=== PATIENT | female | born 1955 | race Asian ===

== ENCOUNTER 2016-10-08 11:50 | Emergency (ER) | payer OTHER ==
[2016-10-08 12:04] VITALS: BP 149/74; PULSE 76; TEMP 98; BMI 24.5
[2016-10-08] MEDS ORDERED: CLINDAMYCIN 900 MG PREMIX IVPB 50 ML IVPB ONE (12:13)
[2016-10-08] MEDS ORDERED: CLINDAMYCIN PHOSPHATE 300 MG/2 ML VIAL ONE (12:15)
[2016-10-08] MEDS ORDERED: CLINDAMYCIN PHOSPHATE 600 MG/4 ML VIAL ONE (12:15)
--- NOTE | 2016-10-08 12:19 | PDOC ---
History of Present Illness - General Chief Complaint: Injury Stated Complaint: FELL ON HER FACE Time Seen by Provider: 10/08/16 11:59 History Source: Patient - History of Present Illness Initial Comments: 10/08/16 12:14 60 yo F with no pmhx here wtih c/o abrasion to nasal bridge after fall one week ago, and now with worsenign redness swelling to left face. no n/v no fever or chills. no loc at time of fall. no change to vision. no pain with eye movement. was putting aloe plant on face, and took zyrtec. also took benadryl thought maybe it was allergic no relief. no prior medication allergies. no epistaxis or eccymosis at time of fall. Past History - Past Medical History Allergies/Adverse Reactions: Allergies Allergy/AdvReac Type Severity Reaction Status Date / Time No Known Allergies Allergy Verified 03/01/15 20:47 Home Medications: Ambulatory Orders Cetirizine HCl [Zyrtec -] 10 mg PO DAILY PRN 10/08/16 Clindamycin [Cleocin -] 300 mg PO Q6HPO #28 capsule 10/08/16 Diphenhydramine HCl [Benadryl -] 25 mg PO ONCE 10/08/16 Asthma: Yes Psychiatric Problems: Yes - Psycho/Social/Smoking Cessation Hx Anxiety: Yes Suicidal Ideation: No Smoking History: Never smoked Hx Alcohol Use: No Drug/Substance Use Hx: No Substance Use Type: None Review of Systems - Review of Systems Constitutional: No: Chills, Diaphoresis HEENTM: No: Eye Pain, Blurred Vision Respiratory: No: Cough, Orthopnea Cardiac (ROS): No: Chest Pain, Edema ABD/GI: No: Abdominal Distended : No: Burning, Dysuria Musculoskeletal: No: Back Pain, Gout Integumentary: Yes: Dryness, Erythema, Pruritus, Other (dermatitis type rash left lower chin, left face swelling. ) Neurological: No: Headache, Numbness All Other Systems: Reviewed and Negative *Physical Exam - Vital Signs Last Vital Signs Temp Pulse Resp BP Pulse Ox 98.0 F 76 15 149/74 98 10/08/16 11:56 10/08/16 11:56 10/08/16 11:56 10/08/16 11:56 10/08/16 11:56 - Physical Exam General Appearance: Yes: Appropriately Dressed, Apparent Distress HEENT: positive: DAWN, Pharynx Normal, Other (nasal bridge swelling, erythema. turbinate intact, no septal hematoma. EOMI. ). negative: Muffled/Hoarse voice, Pharyngeal Erythema, Tonsillar Exudate, Tonsillar Erythema, Nasal Congestion, Sinus Tenderness Neck: positive: Trachea midline. negative: Tender Respiratory/Chest: positive: Lungs Clear, Normal Breath Sounds. negative: Chest Tender, Respiratory Distress Cardiovascular: positive: Regular Rhythm, Regular Rate, S1, S2. negative: Edema , JVD, Murmur Musculoskeletal: positive: Normal Inspection. negative: CVA Tenderness, CVA Tenderness (R) Extremity: positive: Normal Capillary Refill, Normal Inspection, Normal Range of Motion Integumentary: positive: Dry, Warm, Erythema, Other (erythema to nasal bridge with abrasion, left lat facial min swelling. no pain wtih EOM, no crepitus. no fluctuance) Neurologic: positive: coffin maker II-XII NML intact, Fully Oriented, Alert, Normal Mood/ Affect ED Treatment Course - LABORATORY CBC & Chemistry Diagram: 10/08/16 12:15 10/08/16 12:15 Medical Decision Making - Medical Decision Making 10/08/16 12:18 60 yo F s/p abrasion to nasal bridge, now with early cellulitis, sx of infection. differential includes allergy to aloe cream. plan labs iv antiobtiocs. will d/w dr. Oliva [phone]. possible dc on abx with close followup. no sx of orbital cellulitis on exam or history. pt not diabetic. also local antiobiotc cream with bacitracin. 10/08/16 13:42 pt physician no call back . dc on clindamycin, told to return to ED in 48 hours for repeat evaluation if unable to get a hold of pcp. *DC/Admit/Observation/Transfer Diagnosis at time of Disposition: Abrasion of nose with infection - Discharge Dispostion Disposition: HOME Condition at time of disposition: Good Admit: No - Prescriptions Prescriptions: Clindamycin [Cleocin -] 300 mg PO Q6HPO #28 capsule - Referrals Referrals: Qasim Moreland MD [Primary Care Provider] - - Patient Instructions Printed Discharge Instructions: Cellulitis Additional Instructions: take clindamycin 300 mg four times daily x 7 days. return for worsening swelling , fever ,pain in eye or any concern. you need to be seen by your doctor within 2 - 3 days. return for any problems or concerns. if you are unable to follow up with your doctor. you should return to ED to have a repeat evaluation. do not put aloe on face. apply bacitracin ointment twice daily
[2016-10-08 12:45] LABS: BASOPHIL 2.7 % (0-2.0); EOSINOPHIL 12.4 % (0-4.5); MCH 29.1 pg (25.7-33.7); MCHC 32.9 g/dl (32.0-36.0); MEAN CELL VOLUME 88.6 fl (80-96); MEAN PLT VOLUME 7.9 fl (7.5-11.1); NEUTROPHILS 47.2 % (42.8-82.8); PLATELET COUNT 370 K/MM3 (134-434); WHITE BLOOD COUNT 6.4 K/mm3 (4.0-10.8)
[2016-10-08 12:49] LABS: ANION GAP 8 (8-16); CALCIUM 8.9 mg/dl (8.4-10.2); CO2 26 mmol/L (22-28); CREATININE 0.7 mg/dl (0.6-1.3); GLUCOSE,RANDOM 127 mg/dl (74-106)
== END 2016-10-08 13:55 | disposition home or self-care (01) ==
LOC: FER 11:50
DX: S00.31XD Abrasion of nose, subsequent encounter (principal); L08.9 Local infection of the skin and subcutaneous tissue, unspecified; W18.30XD Fall on same level, unspecified, subsequent encounter
CPT/HCPCS: 36415; 80048; 85025; 87040; 99283-25

== ENCOUNTER 2016-11-02 08:46 | Emergency (ER) | payer OTHER ==
[2016-11-02 09:01] VITALS: BP 131/64; PULSE 74; TEMP 98.6; BMI 24.5
--- NOTE | 2016-11-02 09:25 | PDOC ---
History of Present Illness - General Chief Complaint: Allergic Reaction Stated Complaint: FACIAL SWELLING Time Seen by Provider: 11/02/16 09:00 - History of Present Illness Initial Comments: 11/02/16 09:29 Chief complaint: Swelling and irritation around the eyes History of present illness: Patient applied some vitamin E oil to her face yesterday, subsequently developed puffiness of the lower eyelids with mild erythema. No pain in the eyes, no irritation or swelling of the throat lower face or lips, and no chest tightness or wheezing Past medical, social, family history reviewed and noncontributory except for moderate seasonal ALLERGIES Physical exam: Alert oriented well-developed well-nourished no acute distress cheerful and cooperative Afebrile, vital signs normal PERRLA, fundi benign, conjunctivae clear. ENT clear. Specifically, there is no sign of angioedema of the oropharynx, lips, or lower face There is mild periorbital edema and mild erythema bilaterally. There is no induration or point tenderness of the orbits are cheeks Neck supple without bruit mass or nodes Lungs clear with full breath sounds throughout bilaterally. No wheezes rales or rhonchi CV S1 and S2 normal without murmur rub or gallop pulses full and symmetric no JVD or edema Abdomen soft nontender without mass or organomegaly Remainder of the skin is clear. There is no other rash or urticaria present Impression: Localized contact dermatitis Plan: Symptomatic treatment with cool compresses, avoid further irritants, continue Benadryl or Vistaril. Return if there are further symptoms otherwise follow up with primary physician or software engineering manager. Patient fully ambulatory and in no pain or other discomfort upon discharge to follow-up as directed Past History - Past Medical History Allergies/Adverse Reactions: Allergies Allergy/AdvReac Type Severity Reaction Status Date / Time No Known Allergies Allergy Verified 11/02/16 09:01 Home Medications: Ambulatory Orders Hydroxyzine Pamoate [Vistaril -] 25 mg PO TID #20 capsule 11/02/16 Asthma: Yes Psychiatric Problems: Yes - Psycho/Social/Smoking Cessation Hx Anxiety: Yes Suicidal Ideation: No Smoking History: Never smoked Information on smoking cessation initiated: No Hx Alcohol Use: Yes (SOCIAL) Drug/Substance Use Hx: No Substance Use Type: Alcohol *Physical Exam - Vital Signs Last Vital Signs Temp Pulse Resp BP Pulse Ox 98.6 F 74 18 131/64 97 11/02/16 08:47 11/02/16 08:47 11/02/16 08:47 11/02/16 08:47 11/02/16 08:47 *DC/Admit/Observation/Transfer Diagnosis at time of Disposition: Contact dermatitis Qualifiers: Contact dermatitis type: allergic Contact dermatitis trigger: cosmetics Qualified Code(s): L23.2 - Allergic contact dermatitis due to cosmetics - Discharge Dispostion Disposition: HOME Condition at time of disposition: Stable Admit: No - Prescriptions Prescriptions: Hydroxyzine Pamoate [Vistaril -] 25 mg PO TID #20 capsule - Referrals Referrals: Linda Angel [Staff Physician] - - Patient Instructions Printed Discharge Instructions: DI for Contact Dermatitis Additional Instructions: Use cool compresses or cool soaks. Avoid hot showers or heat in general. Medication as prescribed. You may alternatively use [id number] Benadryl- generic name diphenhydramine- 25 mg capsules one 3 times daily Avoid applying anything to the skin of the face, including cosmetics, creams, or oils Return to ER if there is any irritation or swelling of the throat, tongue, or lips, or there is any chest tightness wheezing or respiratory symptoms. Otherwise follow-up with your doctor or with software engineering manager if no improvement
== END 2016-11-02 09:29 | disposition home or self-care (01) ==
LOC: FER 08:46
DX: L23.2 Allergic contact dermatitis due to cosmetics (principal); F41.9 Anxiety disorder, unspecified; F99 Mental disorder, not otherwise specified
CPT/HCPCS: 99281-25

== ENCOUNTER 2016-11-04 10:41 | Emergency (ER) | payer OTHER ==
--- NOTE | 2016-11-04 10:44 | PDOC ---
History of Present Illness - General Chief Complaint: Allergic Reaction Stated Complaint: FACE SWELLING Time Seen by Provider: 11/04/16 10:44 History Source: Patient Exam Limitations: No Limitations - History of Present Illness Initial Comments: 11/04/16 10:46 The patient is a 61-year-old female, who presents to the emergency department with persistent facial swelling. She was initially seen in the emergency department on October 08, when she presented with facial swelling that developed following a fall 1 week prior, during which she sustained a laceration to her nasal bridge. At that time, she was prescribed clindamycin. She took the antibiotic as prescribed, yet the facial swelling persisted, and she presented to the emergency department for another evaluation on November 02. At that time, she reported that her symptoms had been steadily improving, but she put a lotion on her face, and afterward developed facial swelling again. She is now presenting complaining of continued facial swelling. She denies pain. She denies changes in her vision. She denies diplopia. She denies fever, chills, sweats. Past History - Past Medical History Allergies/Adverse Reactions: Allergies Allergy/AdvReac Type Severity Reaction Status Date / Time No Known Allergies Allergy Verified 11/02/16 09:01 Home Medications: Ambulatory Orders Hydroxyzine Pamoate [Vistaril -] 25 mg PO TID #20 capsule 11/02/16 Amox-Tr/K Cl [Augmentin 875Mg Tablet] 1 tab PO BID #28 tablet 11/04/16 Fluticasone Prop 0.05% Nasal [Flonase] 1 - 2 spray NS DAILY #1 spray.pump Loratadine [Claritin -] 10 mg PO DAILY #7 tablet 11/04/16 Asthma: Yes Psychiatric Problems: Yes - Psycho/Social/Smoking Cessation Hx Anxiety: Yes Suicidal Ideation: No Smoking History: Never smoked Hx Alcohol Use: Yes (SOCIAL) Drug/Substance Use Hx: No Substance Use Type: Alcohol Review of Systems - Review of Systems Comments:: 11/04/16 10:48 CONSTITUTIONAL: Absent: fever, chills, diaphoresis, generalized weakness, malaise, loss of appetite HEENT: Present: See history of present illness Absent: rhinorrhea, nasal congestion, throat pain, throat swelling, difficulty swallowing, mouth swelling, ear pain, eye pain, visual changes CARDIOVASCULAR: Absent: chest pain, loss of consciousness, palpitations, irregular heart rate, peripheral edema RESPIRATORY: Absent: cough, shortness of breath, dyspnea with exertion, orthopnea, wheezing, stridor, hemoptysis GASTROINTESTINAL: Absent: abdominal pain, abdominal distension, nausea, vomiting, diarrhea, constipation, melena, hematochezia GENITOURINARY: Absent: dysuria, frequency, urgency, hesitancy, hematuria, flank pain, genital pain MUSCULOSKELETAL: Absent: myalgia, arthralgia, joint swelling SKIN: Absent: rash, itching, pallor HEMATOLOGIC/IMMUNOLOGIC: Absent: easy bleeding, easy bruising, lymphadenopathy, frequent infections ENDOCRINE: Absent: unexplained weight gain, unexplained weight loss, heat intolerance, cold intolerance NEUROLOGIC: Absent: headache, focal weakness or paresthesias, dizziness, unsteady gait, seizure, mental status changes, bladder or bowel incontinence PSYCHIATRIC: Absent: anxiety, depression, suicidal or homicidal ideation, hallucinations. *Physical Exam - Physical Exam Comments: 11/04/16 10:48 GENERAL: Well developed, well nourished. Awake and alert. No acute distress. HEENT: Normocephalic, atraumatic. PERRLA, EOMI. No conjunctival pallor. Sclera are non- icteric. Moist mucous membranes. Oropharynx is clear. NECK: Supple. Full ROM. No JVD. Carotid pulses 2+ and symmetric, without bruits. No thyromegaly. No lymphadenopathy. CARDIOVASCULAR: Regular rate and rhythm. No murmurs, rubs, or gallops. Distal pulses are 2+ and symmetric. PULMONARY: No evidence of respiratory distress. Lungs clear to auscultation bilaterally. No wheezing, rales or rhonchi. ABDOMINAL: Soft. Non-tender. Non-distended. No rebound or guarding. No organomegaly. Normoactive bowel sounds. MUSCULOSKELETAL Normal range of motion at all joints. No bony deformities or tenderness. No CVA tenderness. EXTREMITIES: No cyanosis. No clubbing. No edema. No calf tenderness. SKIN: There is very minimal bilateral periorbital edema, with very minimal erythema and hyperkeratosis of the skin. The area is not warm. The area is not tender. There is no crepitance. There is no obvious underlying facial bone tenderness. Warm and dry. Normal capillary refill. No rashes. No jaundice. NEUROLOGICAL: Alert, awake, appropriate. Cranial nerves 2-12 intact. No deficits to light touch and temperature in face, upper extremities and lower extremities. No motor deficits in the in face, upper extremities and lower extremities. Normoreflexic in the upper and lower extremities. Normal speech. Toes are down- going bilaterally. Gait is normal without ataxia. PSYCHIATRIC: Cooperative. Good eye contact. Appropriate mood and affect. 11/04/16 11:35 ED Treatment Course - LABORATORY CBC & Chemistry Diagram: 11/04/16 10:55 11/04/16 10:55 Medical Decision Making - Medical Decision Making 11/04/16 10:48 The patient is well-appearing and in no acute distress Vitals noted Will obtain CT of the facial bones with IV contrast to rule out possible fracture and possible developing abscess 11/04/16 11:36 CBC and chemistries noted CT pending 11/04/16 12:30 CT noted, with evidence of chronic sinusitis, and multiple sinus cavities It is possible that the facial swelling is due to the chronic sinusitis It is not consistent with the appearance of cellulitis, nor with the appearance of a contact dermatitis At this point, I feel that she would benefit from antibiotics, oral antihistamines, intranasal corticosteroids and ENT referral She may require oral steroids as well, but I will defer this to ENT Clinical impression: Sinusitis Facial swelling I discussed the physical exam findings, ancillary test results and final diagnoses with the patient. I answered all of the patient's questions. The patient was satisfied with the care received and felt comfortable with the discharge plan and treatment plan. The patient will call their primary care physician within 24 hours to arrange follow-up and will return to the Emergency Department with any new, persistent or worsening symptoms. 11/04/16 12:35 *DC/Admit/Observation/Transfer Diagnosis at time of Disposition: Sinusitis - Discharge Dispostion Disposition: HOME Condition at time of disposition: Good - Prescriptions Prescriptions: Amox-Tr/K Cl [Augmentin 875Mg Tablet] 1 tab PO BID #28 tablet Loratadine [Claritin -] 10 mg PO DAILY #7 tablet Fluticasone Prop 0.05% Nasal [Flonase] 1 - 2 spray NS DAILY #1 spray.pump - Referrals Referrals: Qasim Moreland MD [Primary Care Provider] - Ko Espino MD [Staff Physician] - Call tomorrow - Patient Instructions Printed Discharge Instructions: DI for Sinusitis Additional Instructions: Return to the emergency department immediately with ANY new, persistent or worsening symptoms. You MUST call and follow up with your doctor tomorrow. Please make sure your doctor reviews the results of your emergency department evaluation.
[2016-11-04 10:49] VITALS: BP 136/53; PULSE 71; TEMP 98.7; BMI 24.5
[2016-11-04 11:04] LABS: BASOPHIL 2.6 % (0-2.0); EOSINOPHIL 13.5 % (0-4.5); MCH 29.4 pg (25.7-33.7); MCHC 33.6 g/dl (32.0-36.0); MEAN CELL VOLUME 87.5 fl (80-96); MEAN PLT VOLUME 7.8 fl (7.5-11.1); NEUTROPHILS 52.6 % (42.8-82.8); PLATELET COUNT 362 K/MM3 (134-434); WHITE BLOOD COUNT 6.6 K/mm3 (4.0-10.8)
[2016-11-04 11:20] LABS: ANION GAP 4 (8-16); CALCIUM 8.7 mg/dl (8.4-10.2); CO2 27 mmol/L (22-28); CREATININE 0.7 mg/dl (0.6-1.3); GLUCOSE,RANDOM 94 mg/dl (74-106)
== END 2016-11-04 12:45 | disposition home or self-care (01) ==
LOC: FER 10:41
DX: J32.9 Chronic sinusitis, unspecified (principal); F41.9 Anxiety disorder, unspecified
CPT/HCPCS: 36415; 70487-TC; 80048; 85025; 99282-25

== ENCOUNTER 2017-04-23 11:51 | Emergency (ER) | payer OTHER ==
[2017-04-23 12:08] VITALS: BP 147/78; PULSE 82; TEMP 97.9; BMI 24.5
[2017-04-23] MEDS ORDERED: ACETAMINOPHEN 325 MG TABLET (FP) PO ONE (12:46)
[2017-04-23] MEDS ORDERED: ACETAMINOPHEN 325 MG TABLET (FP) ONE (12:50)
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
== END 2017-04-23 13:34 | disposition home or self-care (01) ==
LOC: FER 11:51
DX: S70.11XA Contusion of right thigh, initial encounter (principal); S00.511A Abrasion of lip, initial encounter; V43.62XA Car passenger injured in collision with other type car in traffic accident, initial encounter; Y93.89 Activity, other specified; Y92.410 Unspecified street and highway as the place of occurrence of the external cause; J45.909 Unspecified asthma, uncomplicated; F99 Mental disorder, not otherwise specified
CPT/HCPCS: 99282-25

== ENCOUNTER 2018-09-21 11:35 | Emergency (ER) | payer OTHER ==
[2018-09-21] MEDS ORDERED: diphenhydrAMINE HCL 25 MG CAPSULE (FP) PO ONE ×2 (11:43→12:04)
[2018-09-21] MEDS ORDERED: predniSONE 20 MG TABLET (UD) PO ONE (11:43)
--- NOTE | 2018-09-21 11:43 | PDOC ---
History of Present Illness - General Chief Complaint: Allergic Reaction Stated Complaint: ALLERGIC REACTION AROUND EYES Time Seen by Provider: 09/21/18 11:42 History Source: Patient Exam Limitations: No Limitations - History of Present Illness Initial Comments: 62 yo F presents with periorbital swelling and swelling to the nasal bridge after using a new eye makeup remover. She states that she removed the makeup at night, then woke up the next morning with swollen eyelids. Denies eye pain. No redness. No pain on movement of the eyes B/L. No vision changes. Past History - Past Medical History Allergies/Adverse Reactions: Allergies Allergy/AdvReac Type Severity Reaction Status Date / Time No Known Allergies Allergy Verified 09/21/18 11:40 Home Medications: Ambulatory Orders Cetirizine HCl [Zyrtec -] 10 mg PO DAILY PRN 04/23/17 predniSONE [Deltasone -] 40 mg PO DAILY #6 tablet 09/21/18 Asthma: Yes COPD: No Psychiatric Problems: Yes - Suicide/Smoking/Psychosocial Hx Smoking History: Never smoked Hx Alcohol Use: No Drug/Substance Use Hx: No Substance Use Type: None Review of Systems - Review of Systems Able to Perform ROS?: Yes Comments:: GENERAL/CONSTITUTIONAL: No fever or chills. No weakness. HEAD, EYES, EARS, NOSE AND THROAT: No change in vision. No ear pain or discharge. No sore throat. +Eyelid swelling B/L. SKIN: No rash. NEUROLOGIC: No headache, vertigo, loss of consciousness, or change in strength/ sensation. ENDOCRINE: No increased thirst. No abnormal weight change. HEMATOLOGIC/LYMPHATIC: No anemia, easy bleeding, or history of blood clots. ALLERGIC/IMMUNOLOGIC: No hives or skin allergy. *Physical Exam - Physical Exam Comments: GENERAL: Awake, alert, and fully oriented, in no acute distress HEAD: No signs of trauma EYES: PERRLA, EOMI, sclera anicteric, conjunctiva clear. +Boggy periorbital edema to the upper and lower eyelids B/L. No erythema, no skin lesions, no drainage. ENT: Auricles normal inspection, hearing grossly normal, nares patent, oropharynx clear without exudates. Moist mucosa NECK: Normal ROM, supple, no lymphadenopathy, JVD, or masses SKIN: Warm, Dry, normal turgor, no rashes or lesions noted. Medical Decision Making - Medical Decision Making 09/21/18 11:45 Will opt for PO steroids, as the area around the eyes is extremely sensitive, topical steroids are not a good option. Stable for DC home. *DC/Admit/Observation/Transfer Diagnosis at time of Disposition: Contact dermatitis - Discharge Dispostion Disposition: HOME Condition at time of disposition: Stable Decision to Admit order: No - Prescriptions Prescriptions: predniSONE [Deltasone -] 40 mg PO DAILY #6 tablet - Referrals Referrals: Qasim Moreland MD [Primary Care Provider] - - Patient Instructions Printed Discharge Instructions: DI for Contact Dermatitis - Post Discharge Activity
[2018-09-21] MEDS ORDERED: predniSONE 20 MG TABLET (UD) ONE (12:04)
[2018-09-21 12:19] VITALS: BP 143/74; PULSE 64; TEMP 98.4; BMI 23.8
== END 2018-09-21 12:15 | disposition home or self-care (01) ==
LOC: FER 11:35
DX: L25.9 Unspecified contact dermatitis, unspecified cause (principal); J45.909 Unspecified asthma, uncomplicated; F99 Mental disorder, not otherwise specified
CPT/HCPCS: 99282-25

== ENCOUNTER 2018-11-11 18:20 | Emergency (ER) | payer OTHER ==
[2018-11-11 18:55] VITALS: BP 121/68; PULSE 79; TEMP 97.8; BMI 24.1
--- NOTE | 2018-11-11 18:56 | PDOC ---
Documentation entered by Teodora Abebe SCRIBE, acting as scribe for Eder Borden MD. Eder Borden MD: This documentation has been prepared by the Andrae lang Aiswarya, SCRIBE, under my direction and personally reviewed by me in its entirety. I confirm that the documentation accurately reflects all work, treatment, procedures, and medical decision making performed by me. History of Present Illness - General Chief Complaint: Itching Stated Complaint: ITCHING Time Seen by Provider: 11/11/18 18:35 History Source: Patient Exam Limitations: No Limitations - History of Present Illness Initial Comments: 11/11/18 18:59 The patient is a 63 year old female, with a significant PMH of asthma and eczema , who presents to the emergency department with 3 to 4 days of itch. The patient states she went hiking and stayed at a hotel in [place] on 11/07/18 when she first noticed intermittent itch diffused throughout the body that progressively worsens at night. She reports she is unable to sleep and feels restless at times. The patient denies any numbness or tingling. Denies chest pain, shortness of breath, headache and dizziness.Denies fever, chills, nausea, vomiting, diarrhea and constipation. Allergies: NKDA Past surgical history: None reported Social history: None reported PCP: None reported Past History - Past Medical History Allergies/Adverse Reactions: Allergies Allergy/AdvReac Type Severity Reaction Status Date / Time No Known Allergies Allergy Verified 11/11/18 18:30 Home Medications: Ambulatory Orders Hydroxyzine HCl 25 mg PO TID #30 tablet 11/11/18 Permethrin 5% Topical Cream [Elimite -] 2 applic TP ONCE 2 Days #2 tube Asthma: Yes COPD: No Psychiatric Problems: Yes - Suicide/Smoking/Psychosocial Hx Smoking History: Never smoked Hx Alcohol Use: No Drug/Substance Use Hx: No Substance Use Type: None Review of Systems - Review of Systems Able to Perform ROS?: Yes Comments:: 11/11/18 19:00 A complete review of 10 out of 10 review of systems is taken and is negative apart from what is previously mentioned below and in the HPI. *Physical Exam - Physical Exam Comments: 11/11/18 18:54 Vitals: Triage Vital signs reviewed General Appearance: no acute distress, well nourished well developed, Head: Atraumatic, Skin: Excoriated scratch reza and linear track like reza in the distribution under patient's breasts Asians axilla patient's lower back and belt line inguinal area lower extremities elbow creases Psych: normal mood, normal affect Medical Decision Making - Medical Decision Making 11/11/18 18:55 History examination consistent with scabies. Patient did recently sustain a hotel itching is worse at night classic scabies distribution. We'll treat her and her with permethrin cream hydroxyzine for itching and strict housecleaning precautions Findings, the need for follow-up and strict return instructions discussed with patient. *DC/Admit/Observation/Transfer Diagnosis at time of Disposition: Scabies - Discharge Dispostion Disposition: HOME Condition at time of disposition: Stable Decision to Admit order: No - Prescriptions Prescriptions: Hydroxyzine HCl 25 mg PO TID #30 tablet Permethrin 5% Topical Cream [Elimite -] 2 applic TP ONCE 2 Days #2 tube - Referrals - Patient Instructions Printed Discharge Instructions: Scabies Additional Instructions: Apply permethrin cream to entire body leave on for 24 hours same instructions for her . Have all the clothing sheets bedding couches professionally cleaned and your house. Take hydroxyzine as prescribed for itching follow-up with her primary care provider within one week if no improvement in symptoms. Return to ED for any concerns. - Post Discharge Activity
== END 2018-11-11 19:02 | disposition home or self-care (01) ==
LOC: FER 18:20
DX: B86 Scabies (principal); J45.909 Unspecified asthma, uncomplicated; F99 Mental disorder, not otherwise specified
CPT/HCPCS: 99281-25

== ENCOUNTER 2019-01-14 13:29 | Emergency (ER) | payer OTHER | END 2019-01-14 14:23 | disposition home or self-care (01) | LOC: FER 13:29 ==

== ENCOUNTER 2025-01-24 15:37 | Emergency (ER) | payer OTHER ==
[2025-01-24] MEDS ORDERED: predniSONE 20 MG TABLET (UD) ONE (15:56)
[2025-01-24] MEDS: predniSONE 20 MG TABLET (UD) PO ONE (15:56)
[2025-01-24 15:57] VITALS: BP 124/55; PULSE 73; RESP 20; TEMP 98.2; BMI 27.3
== END 2025-01-24 16:29 | disposition home or self-care (01) ==
LOC: FER 15:37
DX: L23.9 Allergic contact dermatitis, unspecified cause (principal)
CPT/HCPCS: 99283-25